=== PATIENT | male | born 1960 | race Caucasian/White ===

== ENCOUNTER 2018-04-08 11:10 | Day surgery (SDC) | payer OTHER ==
[~2018-04-08 11:10] MED LIST: ROCURONIUM 50 MG INJ; SOD CHLORIDE 0.9% 1,000 ML IV
[2018-04-08] MEDS ORDERED: METOCLOPRAMIDE 10 MG INJ (17:06)
[2018-04-08] MEDS ORDERED: ROPIVACAINE 0.5 % 30 ML VIAL (17:06)
[2018-04-08] MEDS ORDERED: PROPOFOL 20 ML (17:06)
[2018-04-08] MEDS ORDERED: MIDAZOLAM 1 MG/ML 2 ML INJ (17:06)
[2018-04-08] MEDS ORDERED: FENTAnyl 50 MCG/ML VIAL (17:10)
[2018-04-08] MEDS ORDERED: CEFAZOLIN 1 GM INJ (17:19)
[2018-04-08] MEDS: CEFAZOLIN 2 GM/50 ML (PMX) 50 ML IVPB (17:20)
[2018-04-08] MEDS ORDERED: KETOROLAC 30 MG INJ (17:39)
[2018-04-08] MEDS ORDERED: ONDANSETRON 4 MG INJ (17:39)
[2018-04-08] MEDS ORDERED: DIPHENHYDRAMINE 50 MG INJ IV (18:00)
[2018-04-08] MEDS ORDERED: MEPERIDINE 25 MG INJ IV (18:00)
[2018-04-08] MEDS ORDERED: HYDROmorphONE 1 MG/5 ML IV SYRINGE IV ×5 (18:00→19:30)
[2018-04-08] MEDS ORDERED: OXYCODONE/ACETAMINOPHEN (5/325) TAB PO ×2 (18:00→19:30)
[2018-04-08] MEDS ORDERED: GLYCOPYRROLATE 0.4 MG INJ (18:33)
[2018-04-08] MEDS ORDERED: NEOSTIGMINE 3 MG/3 ML SYRINGE (18:33)
[2018-04-08] MEDS: HYDROmorphONE 1 MG/5 ML IV SYRINGE IV (19:20)
[2018-04-08] MEDS: ONDANSETRON 4 MG INJ IV (19:20)
[2018-04-08] MEDS: OXYCODONE/ACETAMINOPHEN (5/325) TAB PO (19:52)
== END 2018-04-08 20:15 | disposition home or self-care (01) ==
LOC: SDS 11:10
DX: K40.90 Unilateral inguinal hernia, without obstruction or gangrene, not specified as recurrent (principal)
CPT/HCPCS: 49505